=== PATIENT | female | born 1980 | race Hispanic/Latino ===

== ENCOUNTER 2020-11-11 15:54 | Outpatient (CLI) | payer BC ==
--- NOTE | 2020-11-11 16:23 | ULT ---
EXAM: Pelvic ultrasound HISTORY: Irregular menses COMPARISON: None TECHNIQUE: Multiple grayscale and color Doppler images were obtained in a transabdominal and transvag inal pelvic ultrasound. Spectral analysis of the Doppler waveforms of the ovaries were performed. FINDINGS: CERVIX: No evidence of nabothian cysts. UTERUS: Normal in size without focal abnormality. ENDOMETRIAL STRIPE: 9 mm. No free fluid is seen in the pelvis. RIGHT OVARY: Normal flow without focal mass. A small follicle seen in the right ovary. LEFT OVARY: Normal flow without focal mass. IMPRESSION: No significant pelvic abnormality
== END 2020-11-11 15:55 | disposition home or self-care (01) ==
LOC: BICULT 15:54
PROVIDERS: ATTEND Student in an Organized Health Care Education/Training Program
DX: N92.6 Irregular menstruation, unspecified (principal)
CPT/HCPCS: 76856